=== PATIENT | male | born 1955 | race Caucasian/White ===

== ENCOUNTER → 2020-01-25 | Outpatient (CLI) | payer BC ==
--- NOTE | 2020-01-26 09:25 | SLEEP ---
DATE OF STUDY: 01/25/2020 SLEEP STUDY REFERRING PHYSICIAN: MORELIA Duckworth The patient is a 64-year-old who weighs 265 pounds with a BMI of 36. The patient's Enders score was 10. The patient underwent split night study performed at [facility]. During the night of the study, the patient spent 411 minutes in bed and slept for 276 minutes with a sleep efficiency of 67%. Sleep latency was 11 minutes with a REM latency of 142 minutes. Sleep architecture showed normal stage 1 and stage 2 sleep, increased slow wave and normal REM sleep. During the initial diagnostic portion of the study, the patient slept for 71 minutes. During that time, there was 1 obstructive apnea, 5 mixed apnea, no central apneas and 27 hypopneas. The patient's AHI was 28 per hour, supine AHI 94 per hour. REM sleep was not seen. EKG monitoring revealed normal sinus rhythm, average heart rate 56 beats per minute, no sustained arrhythmias observed. PLMS were seen at an index of 11 per hour and 2 per hour caused EEG arousals. Nocturnal oximetry study showed a mean oxygen saturation of 96% with lowest of 85%. 8% of the time oxygen saturation remained between 80% and 89%. The patient met the criteria for CPAP initiation. He was started at 5 cm water and titrated up to 15 cm water. At the final pressure, the patient slept for 136 minutes. The patient's AHI was reduced to only 3 per hour. The patient had supine as well as REM sleep. The patient's oxygen saturation remained above 91%. IMPRESSION: 1. Moderate obstructive sleep apnea at an AHI of 28 per hour. AHI increased to 94 per hour during supine sleep. No REM sleep seen during the diagnostic portion. 2. Mild nocturnal hypoxia secondary to obstructive sleep apnea, but resolved with CPAP. 3. 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 This does not need to be treated. RECOMMENDATIONS: 1. CPAP at 15 cm water completely eliminated the patient's sleep apnea and should be used on a nightly basis. The patient used a medium size full face mask. 2. Follow up in 4-6 weeks to assess compliance with CPAP and to document clinical improvement. 3. Weight loss is strongly advised. 4. Avoid [employer] depressants. 5. Caution regarding driving until symptoms of sleep apnea resolve with the use of CPAP. 6. Avoid supine sleep. MARGARITA MOELLER MD DR: JUAN/ines JOB#: [id number] / [id number] DARCY Browne MTDD
== END ==
LOC: SLPLAB 18:21
PROVIDERS: ATTEND Physician Assistant
DX: G47.33 Obstructive sleep apnea (adult) (pediatric) (principal); G47.34 Idiopathic sleep related nonobstructive alveolar hypoventilation; G47.61 Periodic limb movement disorder
CPT/HCPCS: 95810